=== PATIENT | male | born 1940 | race Caucasian/White ===

== ENCOUNTER → 2017-10-31 | Outpatient (CLI) | payer MEDICARE ==
--- NOTE | 2017-10-31 16:42 | Diagnostic Imaging Report ---
PROCEDURE:X-RAY LEFT ELBOW, COMPLETE COMPARISON:None. INDICATIONS:FALL FINDINGS: Normal mineralization. No acute, displaced fracture or dislocation. No lytic or blastic lesion. No posterior fat pad elevation. Joint spaces are relatively well-preserved. Soft tissues are unremarkable. CONCLUSION: No acute abnormalities. Apolinar Valentino M.D. Dictated by: Apolinar Valentino M.D. on 10/31/2017 at 16:44 Electronically approved by: Apolinar Valentino M.D. on 10/31/2017 at 16:44
== END ==
LOC: RAD 12:41
PROVIDERS: ATTEND General Practice
DX: M25.422 Effusion, left elbow (principal)

== ENCOUNTER → 2017-11-28 | Outpatient (CLI) | payer MEDICARE ==
--- NOTE | 2017-11-28 12:35 | Diagnostic Imaging Report ---
PROCEDURE:CHEST 2 VIEWS TECHNIQUE:PA and lateral chest INDICATION:Upper respiratory infection; cough; bronchitis COMPARISON:None. FINDINGS: Calcified left lower lobe granuloma. The lungs are otherwise clear and symmetrically inflated. No pleural effusions. Normal heart size. Tortuous descending thoracic aorta. Normal central vasculature. No focal parabronchial cuffing. Low cervical spine fusion hardware. CONCLUSION: No evidence of infection or other acute abnormality. Dictated by: Francisco Hua M.D. on 11/28/2017 at 12:39 Electronically approved by: Francisco Hua M.D. on 11/28/2017 at 12:39
== END ==
LOC: RAD 11:22
PROVIDERS: ATTEND General Practice
DX: R05 Cough (principal); J40 Bronchitis, not specified as acute or chronic; J06.9 Acute upper respiratory infection, unspecified
CPT/HCPCS: 71046

== ENCOUNTER → 2018-03-18 | Day surgery (SDC) | payer MEDICARE ==
[2018-03-13 15:35] LABS: BASOPHILS % 0.4 % (0.0-1.0); EOSINOPHILS # (AUTO) 0.1 (0.0-0.4); EOSINOPHILS % 1.5 % (0.0-6.0); HEMATOCRIT 53.4 % (38.2-49.6); HEMOGLOBIN 17.9 g/dL (14.0-18.0); LYMPHOCYTES # (AUTO) 1.9 (1.0-3.2); LYMPHOCYTES % 26.2 % (18.0-39.1); MEAN CORPUSCULAR HEMOGLOBIN 33.8 pg (28-32); MEAN CORPUSCULAR HGB CONC 33.5 g/dL (31-35); MEAN CORPUSCULAR VOLUME 100.8 fL (81-99); MONOCYTES # (AUTO) 0.6 (0.2-0.8); MONOCYTES % 8.2 % (4.4-11.3); NEUTROPHILS # (AUTO) 4.7 (2.1-6.9); NEUTROPHILS % 63.6 % (38.7-80.0); PLATELET COUNT 115 x10e3/uL (140-360); RED CELL DISTRIBUTION WIDTH 14.1 % (11.7-14.4)
[2018-03-13 15:54] LABS: ANION GAP 14.6 mmol/L (8-16); CALCIUM 9.7 mg/dL (8.4-10.2); CREATININE, SERUM 1.18 mg/dL (0.72-1.25); POTASSIUM 4.6 mmol/L (3.5-5.1)
--- NOTE | 2018-03-13 16:18 | Diagnostic Imaging Report ---
EXAMINATION: PA and lateral views of the chest. COMPARISON: 03/21/2017 CLINICAL HISTORY: Preoperative study for carpal tunnel release DISCUSSION: The lungs are well-inflated. No focal airspace consolidation, pleural effusion, or pneumothorax. Tortuous thoracic aorta with atherosclerotic calcification. No overt pulmonary edema. No acute osseous abnormality. Surgical hardware partially visualized over the lower cervical spine. IMPRESSION: No acute cardiopulmonary abnormalities. Ectatic thoracic aorta is again noted. Nonemergent CTA of the chest may be considered for further evaluation. Signed by: Dr. Alexys Feng M.D. on 03/13/2018 4:15 PM
[~2018-03-18] MED LIST: BUPIVACAINE HCL 0.5% INJ 30 ML VIAL INJ ONE; CALCIUM ACETAT667 MG PO; CEFAZOLIN SOD 1 GM VIAL ONE; DEXAMETHASONE SOD PHOS INJ 4 MG/ML VIAL ONE; DIAZEPAM5 MG PO; KETOROLAC TROMETHAMINE 30 MG/ML VIAL ONE; L-LYSINE500 M2 PO; LIDOCAINE HCL 2% LOCAL INJ 5 ML SDV VIAL INJ ONE; LISINOPRIL-HCT1 EAC2 PO; MULTI-VITAMIN1 EACH PO; MUPIROCIN 2% OINT 22 GM TUBE ONE; ONDANSETRON HCL INJ 2 MG/ML VIAL ONE; PROPOFOL IV EMULSION 10 MG/ML 20 ML VIAL ONE; SELENIUM200 MC2 PO; SEVOFLURANE INHAL SOLN 250 ML PEN BTL ONE; TAMSULOSIN HCL0.4 MG PO; VISION VITAMIN1 EACH PO; VITAMIN B-122000 MCG PO; VITAMIN C1000 MG PO; VITAMIN D2400 UNIT PO; VITAMIN E400 UNIT PO
[2018-03-18 09:30] VITALS: BP 105/73
--- NOTE | 2018-03-18 15:06 | Operative Report ---
DATE OF PROCEDURE: March 18, 2018 PREOPERATIVE DIAGNOSIS: Left carpal tunnel syndrome. POSTOPERATIVE DIAGNOSES 1. Left carpal tunnel syndrome. 2. Flexor tenosynovitis left wrist. PROCEDURES 1. Left open carpal tunnel release. 2. Flexor tenosynovectomy left wrist. ANESTHESIA:General. HISTORY: The patient is a 78-year-old male with EMG-proven left carpal tunnel syndrome. Risks, benefits and alternatives of treatment were discussed with the patient. The patient is prepared to undergo the procedure as outlined. PROCEDURE: The patient was brought to the operating theater. After the induction of adequate general inhalation anesthesia, the patient was prepped and draped in the supine position. A time out was performed by the entire operating room team. A 2.5-cm incision was marked out in the intrathenar space. The left upper extremity was exsanguinated and a tourniquet was inflated to a pressure of 250 mmHg. The incision was made through the skin and subcutaneous tissues and all venous tributaries were controlled with bipolar cautery. The incision was deepened through the palmar fascia until the transverse carpal ligament was identified. The ligament was sharply sectioned, taking care to protect and preserve the median nerve underlying it. After the complete width of the ligament had been transected, the distal volar forearm fascia was divided under direct view. Proliferative flexor tenosynovium was noticed to encompass the median nerve and this was radically excised. After performing this maneuver, the nerve was noted to lie adequately decompressed. The wound was copiously irrigated with bacteriostatic saline, closed with 5-0 nylon in an interrupted horizontal mattress fashion. A Marcaine field block was performed at the operative site. Tourniquet was deflated. All of the fingers pinked up nicely and a sterile bulking conforming bandage was applied to the hand and the wrist. A fiberglass splint was fashioned to maintain the wrist in a modest amount of extension. This was held in place with a loosely wrapped Chidi wrap. The patient tolerated the procedure well and was brought to the recovery room in satisfactory condition and discharged with a postoperative instruction sheet as well as a followup appointment. Job#: [id number] EV
--- OUTSIDE RECORDS SUMMARY | 2018-03-25 12:15 | XMS REPORT ---
[facility] Address Unknown Phone Unavailable Care Team Providers Care User Interface Engineer Name Role Phone BEE EDWARDS Unavailable Unavailable All LEWIS Unavailable Unavailable Derrick KIMBROUGH Unavailable Unavailable Problems This patient has no known problems. Allergies, Adverse Reactions, Alerts This patient has no known allergies or adverse reactions. Medications This patient has no known medications. Results Test Description Test Time Test Comments Text Results Atomic Results Result Comments CHEST 2 VIEWS 2018-03-13 16:13:[address] [address] Patient Name: COLLEEN PRINCE MR #: [id number] : 1940 Age/Sex: 78/M Req #: [id number] Adm Physician: Ordered by: BEE EDWARDS MD Report #: [id number] Location: OR Room/Bed: Procedure: [id number] DX/CHEST 2 VIEWS Exam Date: 03/13/18 Exam Time: 1530 REPORT STATUS: Signed EXAMINATION: PA and lateral views of the chest. COMPARISON: 03/21/2017 CLINICAL HISTORY: Preoperative study for carpal tunnel release DISCUSSION: The lungs are well-inflated. No focal airspace consolidation, pleural effusion, or pneumothorax. Tortuous thoracic aorta with atherosclerotic calcification. No overt pulmonary edema. No acute osseous abnormality. Surgical hardware partially visualized over the lower cervical spine. IMPRESSION: No acute cardiopulmonary abnormalities. Ectatic thoracic aorta is again noted. Nonemergent CTA of the chest may be considered for further evaluation. Signed by: Dr. Rupert Sorensen M.D. on 03/13/2018 4:15 PM Dictated By: RUPERT SORENSEN MD 161 Transcribed By: LYNDSAY on 03/13/181614 COPY TO: BEE EDWARDS MD CHEST 2 VIEWS 2017-11-28 12:39:00 [place] [address] Patient Name: COLLEEN PRINCE MR #: [id number] : 1940 Age/Sex: 77/M Req #: [id number] Adm Physician: Ordered by: JORY LEWIS Report #: [id number] Location: [facility] Room/Bed: Procedure: [id number] DX/CHEST 2 VIEWS Exam Date: 11/28/17 Exam Time: 1140 REPORT STATUS: Signed PROCEDURE: CHEST 2 VIEWS TECHNIQUE: PA and lateral chest INDICATION: Upper respiratory infection; cough; bronchitis COMPARISON: None. FINDINGS: Calcified left lower lobe granuloma. The lungs are otherwise clear and symmetrically inflated. No pleural effusions. Normal heart size. Tortuous descending thoracic aorta. Normal central vasculature. No focal parabronchial cuffing. Low cervical spine fusion hardware. CONCLUSION: No evidence of infection or other acute abnormality. Dictated by: Negra Hua M.D. on 11/28/2017 at 12:39 Electronically approved by: Negra Hua M.D. on 11/28/2017 at 12:39 Dictated By: NEGRA HUA MD 1239 Transcribed By: NATE on 11/28/17 1239 COPY TO: JORY LEWIS ELBOW LEFT COMPLETE [place] [id number] [place] [address] Patient Name: COLLEEN PRINCE MR #: [id number] : 1940 Age/Sex: 77/M Req #: [id number] Adm Physician: Ordered by: JORY LEWIS Report #: [id number] Location: [facility] Room/Bed: Procedure: [id number] DX/ELBOW LEFT COMPLETE Exam Date: 10/31/17 Exam Time: 1230 REPORT STATUS: Signed PROCEDURE: X-RAY LEFT ELBOW, COMPLETE COMPARISON: None. INDICATIONS: FALL FINDINGS: Normal mineralization. No acute, displaced fracture or dislocation. No lytic or blastic lesion. No posterior fat pad elevation. Joint spaces are relatively well-preserved. Soft tissues are unremarkable. CONCLUSION: No acute abnormalities. Apolinar Valentino M.D. Dictated by: Apolinar Valentino M.D. on 10/31/2017 at 16:44 Electronically approved by: Apolinar Valentino M.D. on 10/31/2017 at 16:44 Dictated By: APOLINAR VALENTINO MD 164 Transcribed By: NATE on 10/31/17 164 COPY TO: JORY LEWIS CT CRYSTALIO FAC/PARANAS WO [place] [address] Patient Name: COLLEEN PRINCE MR #: [id number] : 1940 Age/Sex: 77/M Req #: [id number] Adm Physician: Ordered by: HETAL KIMBROUGH MD Report #: [id number] Location: ER Room/Bed: Procedure: CT/CT MAXIO FAC/PARANAS WO Exam Date: Exam Time: REPORT STATUS: Signed History:Fall. Comparison studies: None Technique: Axial images were obtained through the maxillofacial region. Coronal and sagittal images reconstructed from the axial data. Intravenous contrast: None Findings: Soft tissues: Moderate left supraorbital and periorbital soft tissue edema/hematoma, that extends inferiorly to the premaxillary region. Bones: No acute fracture. Old fracture deformity of left nasal bone. Moderate to severe degenerative changes in the left temporomandibular joint with decreased joint space, sclerosis and subchondral cyst. Orbits: Globes: Left globe is grossly intact Extra or intraconal abnormalities: None. Paranasal sinuses: Clear IMPRESSION: 1. Moderate left supraorbital, periorbital and premaxillary soft tissue edema/hematoma. 2. No acute fracture. Signed by: Dr. Verito Dominguez M.D. on 03/21/2017 11:00 PM Dictated By: VERITO DOMINGUEZ MD 99 Transcribed By: LYNDSAY on 03/21/172299 COPY TO: HETAL KIMBROUGH MD [facility] (PORTABLE) [place] [address] Patient Name: COLLEEN PRINCE MR #: [id number] : 1940 Age/Sex: 77/M Req #: [id number] Adm Physician: Ordered by: HETAL KIMBROUGH MD Report #: [id number] Location: ER Room/Bed: Procedure: [id number] DX/CHEST SINGLE (PORTABLE) Exam Date: 03/21/17 Exam Time: 2243 REPORT STATUS: Signed CHEST SINGLE (PORTABLE), 03/21/2017 10:05 PM Technique: CHEST SINGLE (PORTABLE) Comparison: None available. Clinical history: Status post fall Findings: Cardiac silhouette is within normal limits. Tortuous and/or ectatic thoracic aorta. No consolidation or edema. No pleural effusion or pneumothorax. No acute bony abnormality seen. Impression: No acute abnormality. Tortuous and/or ectatic thoracic aorta. Recommend follow-up upright PA and lateral when able. Signed by: Dr Garfield Macias MD on 03/21/2017 11:18 PM Dictated By: GARFIELD MACIAS MD 17 Transcribed By: LYNDSAY on 03/21/172317 COPY TO: HETAL KIMBROUGH MD CT CERVICAL SPINE WO [place] [address] Patient Name: COLLEEN PRINCE MR #: [id number] : 1940 Age/Sex: 77/M Req #: [id number] Adm Physician: Ordered by: ASAD BROOKE Report #: [id number] Location: ER Room/Bed: Procedure: [id number] CT/CT CERVICAL SPINE WO Exam Date: Exam Time: REPORT STATUS: Signed History: Fall. Comparison studies: None Technique: Axial images were obtained through the cervical region.. Coronal and sagittal images reconstructed from the axial data.. Intravenous contrast: None Findings: Fractures: None. Soft tissue injuries: None. Atlantoaxial articulation: Intact. Alignment: Normal lordosis. No scoliosis. 2 mm grade 1 anterolisthesis at C4-C5, is likely degenerative. Asymmetric widening of the anterior aspect of intervertebral disc space at C3-C4 may be positional or represent underlying ligament injury. Cervicomedullary junction: No abnormalities. The foramen magnum is patent. Soft tissues: No abnormalities. Vertebrae: No fractures, infection or neoplasm. Degenerative changes: C2-C3: Moderate left foraminal stenosis due to facet and uncovertebral arthrosis. C3-C4: Severe left facet arthrosis without significant foraminal stenosis. C4-C5: Moderate to severe left facet arthrosis without significant foraminal stenosis. C5-C6: Mild degenerative disc dis ease with decreased intervertebral disc space and endplate sclerosis. Severe right foraminal stenosis due to facet and uncovertebral arthrosis. C6-C7: Mild degenerative disc disease with decreased intervertebral disc space, endplate sclerosis and vacuum phenomenon. Mild right foraminal stenosis due to facet and uncovertebral arthrosis. C7-T1: Moderate degenerative disc disease with decreased intervertebral disc space, endplate sclerosis and vacuum phenomenon. Moderate right foraminal stenosis due to facet and uncovertebral arthrosis. IMPRESSION: 1. No acute cervical spine fracture. Asymmetric widening of the anterior aspect of intervertebral disc space at C3-C4 may be positional or due to underlying ligament injury. 2. Ligament, spinal cord and or vascular abnormalities cannot be excluded on the basis of this examination. 3. Cervical spondylosis as detailed above. Signed by: Dr. Verito Dominguez M.D. on 03/21/2017 10:54 PM Dictated By: VERITO DOMINGUEZ MD 53 Transcribed By: LYNDSAY on 03/21/172253 COPY TO: ASAD BROOKE CT BRAIN WO [place] [address] Patient Name: COLLEEN PRINCE MR #: [id number] : 1940 Age/Sex: 77/M [id number] Req #: [id number] Adm Physician: Ordered by: HETAL KIMBROUGH MD Report #: [id number] Location: ER Room/Bed: Procedure: [id number] CT/CT BRAIN WO Exam Date: Exam Time: REPORT STATUS: Signed EXAMINATION: Head CT without contrast. HISTORY:Fall. COMPARISON:CT head from 10/07/2015. TECHNIQUE: Multidetector axial images were obtained from the foramen magnum to the vertex without contrast. The images were reconstructed using brain and bone algorithms. Thin section brain images were reformatted into coronal and sagittal planes. Intravenous contrast: None IMAGE QUALITY: Acceptable. FINDINGS: Skull/scalp: Moderate left supraorbital/periorbital soft tissue edema/hematoma. No acute calvarial fracture. Parenchyma: Nonspecific supratentorial white matter confluent and patchy hypodensity are likely related to small vessel ischemic changes. No acute hemorrhage, mass or acute major vascular territorial infarct. Arteries: Mild atherosclerotic calcification in bilateral carotid siphon. Dural sinuses: No abnormal density suggestive of thrombosis. Ventricles: No hydrocephalus or displacement. Extra-axial spaces: No abnormal density. Brain volume: Generalized age-related cerebral volume loss. Craniocervical junction: No mass, Chiari malformation, or basilar invagination. Sella: No mass. Paranasal/mastoid sinuses: Imaged portions unremarkable. IMPRESSION: 1. Moderate left supraorbital/periorbital soft tissue edema/hematoma. No acute calvarial fracture. 2. No acute posttraumatic intracranial abnormality. Chronic findings: 1. Generalized age-related cerebral volume loss. 2. Mild supratentorial white matter microvascular ischemic changes. Signed by: Dr. Verito Dominguez M.D. on 03/21/2017 10:47 PM Dictated By: VERITO DOMINGUEZ MD 46 Transcribed By: LYNDSAY on 03/21/172246 COPY TO: HETAL KIMBROUGH MD
== END | disposition home or self-care (01) ==
LOC: OR 06:02
PROVIDERS: ATTEND Plastic Surgery
DX: G56.02 Carpal tunnel syndrome, left upper limb (principal); M65.842 Other synovitis and tenosynovitis, left hand; I10 Essential (primary) hypertension; D75.9 Disease of blood and blood-forming organs, unspecified; Z01.810 Encounter for preprocedural cardiovascular examination; Z01.812 Encounter for preprocedural laboratory examination; Z01.818 Encounter for other preprocedural examination
CPT/HCPCS: 25115; 36415; 71046; 80048; 85025; 93005; J0690; J1100; J1885; J2001; J2405

== ENCOUNTER → 2018-11-05 | Outpatient (CLI) | payer MEDICARE ==
[~2018-11-05] MED LIST changes: -BUPIVACAINE HCL 0.5% INJ 30 ML VIAL INJ ONE; -CEFAZOLIN SOD 1 GM VIAL ONE; -DEXAMETHASONE SOD PHOS INJ 4 MG/ML VIAL ONE; -KETOROLAC TROMETHAMINE 30 MG/ML VIAL ONE; -LIDOCAINE HCL 2% LOCAL INJ 5 ML SDV VIAL INJ ONE; -MUPIROCIN 2% OINT 22 GM TUBE ONE; -ONDANSETRON HCL INJ 2 MG/ML VIAL ONE; -PROPOFOL IV EMULSION 10 MG/ML 20 ML VIAL ONE; -SEVOFLURANE INHAL SOLN 250 ML PEN BTL ONE
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
== END ==
LOC: MRI 09:35
PROVIDERS: ATTEND Orthopaedic Surgery
DX: M47.22 Other spondylosis with radiculopathy, cervical region (principal)
CPT/HCPCS: 72141

== ENCOUNTER → 2021-05-09 | Day surgery (SDC) | payer MEDICARE ==
[2021-05-08 12:09] LABS: BASOPHILS % 0.8 % (0.0-1.0); EOSINOPHILS # (AUTO) 0.1 (0.0-0.4); EOSINOPHILS % 1.4 % (0.0-6.0); HEMATOCRIT 50.1 % (38.2-49.6); HEMOGLOBIN 15.9 g/dL (14.0-18.0); LYMPHOCYTES # (AUTO) 1.5 (1.0-3.2); MEAN CORPUSCULAR HEMOGLOBIN 32.1 pg (28-32); MEAN CORPUSCULAR HGB CONC 31.7 g/dL (31-35); MONOCYTES # (AUTO) 0.4 (0.2-0.8); MONOCYTES % 7.3 % (4.4-11.3); NEUTROPHILS % 60.3 % (38.7-80.0); PLATELET COUNT 107 x10e3/uL (140-360); RED BLOOD COUNT 4.96 x10e6/uL (4.3-5.7); RED CELL DISTRIBUTION WIDTH 12.6 % (11.7-14.4)
[2021-05-08 12:34] LABS: ALBUMIN 4.3 g/dL (3.5-5.0); ALBUMIN/GLOBULIN RATIO 1.4 (0.8-2.0); ANION GAP 14.5 mmol/L (8-16); CALCIUM 9.9 mg/dL (8.4-10.2); CREATININE, SERUM 1.03 mg/dL (0.72-1.25); POTASSIUM 4.5 mmol/L (3.5-5.1)
[2021-05-09] VITALS (9 sets, daily range): BP systolic 116–150; BP diastolic 77–108
[~2021-05-09] MED LIST changes: +ALPRAZOLAM 0.5 MG TAB ONE; +AREDS PO; +DIPHENHYDRAMINE HCL 25 MG CAP ONE; +FENTANYL CITRATE/PF 100MCG/2 ML INJ ONE; +HEPARIN SOD/SOD CHLORIDE 2,000 ML ONE; +IOPAMIDOL 370 MG/ML 200 ML INFUS..BTL INJ ONE; +LANSOPRAZOLE15 MG PO; +LIDOCAINE HCL 2% LOCAL 20 ML VIAL ONE; +LISINOPRIL10 MG PO; +MIDAZOLAM HCL 2 MG/2 ML VIAL ONE; +SODIUM CHLORIDE 0.9% 1000ML 1,000 ML ONE; +TYLENOL EXTRA500 MG PO; +VITAMIN B-121000 MC1 PO; +VITAMIN C PO; +VITAMIN D3125 MCG PO; +VITAMIN E PO; +VITAMIN E400 UNI1 PO
== END | disposition home or self-care (01) ==
LOC: CATH LAB 12:39
PROVIDERS: ATTEND Internal Medicine Interventional Cardiology
DX: I25.118 Atherosclerotic heart disease of native coronary artery with other forms of angina pectoris (principal); R94.39 Abnormal result of other cardiovascular function study; I73.9 Peripheral vascular disease, unspecified; Z01.812 Encounter for preprocedural laboratory examination; Z20.822 Contact with and (suspected) exposure to COVID-19; Z79.899 Other long term (current) drug therapy; Z82.49 Family history of ischemic heart disease and other diseases of the circulatory system
CPT/HCPCS: 36415; 76937; 80053; 85025; 93454; C1887; J2001; J2250; J3010; J7030; Q9967; U0002; 99152